=== PATIENT | female | born 1990 | race Two or more races ===

== ENCOUNTER 2021-07-17 16:58 | Emergency (ER) | payer SELFPAY ==
[~2021-07-17] VITALS: Ht 162.6 cm; Wt 77.3 kg
[2021-07-17 17:55] VITALS: BP 155/99
[2021-07-18] MEDS ORDERED: KETO10TA2 PO (10:26)
== END 2021-07-18 02:50 | disposition left against medical advice (07) ==
LOC: ER 16:58
DX: M25.512 Pain in left shoulder (principal); M79.89 Other specified soft tissue disorders
CPT/HCPCS: 73030; 99283

== ENCOUNTER 2021-07-18 09:38 | Emergency (ER) | payer BC, OTHER ==
[~2021-07-18] VITALS: Ht 162.6 cm; Wt 77.3 kg
[2021-07-18 10:02] VITALS: BP 146/98
[2021-07-18] MEDS ORDERED: KETO10TA2 PO (10:26)
[2021-07-18] MEDS: ketorolac trometh inj. 60 MG/2 ML VIAL IM ONE (10:38)
== END 2021-07-18 10:39 | disposition home or self-care (01) ==
LOC: ER 09:39
DX: S46.212A Strain of muscle, fascia and tendon of other parts of biceps, left arm, initial encounter (principal); X58.XXXA Exposure to other specified factors, initial encounter; Y93.89 Activity, other specified; Y92.89 Other specified places as the place of occurrence of the external cause; Y99.8 Other external cause status
CPT/HCPCS: 99283